=== PATIENT | male | born 1960 | race Caucasian/White ===

== ENCOUNTER 2022-01-11 07:20 | Emergency (ER) | payer BC, SELFPAY ==
[2022-01-11 07:31] VITALS: BP 164/95; PULSE 93; RESP 18; TEMP 36.3; O2SAT 98; BMI 26.5
--- NOTE | 2022-01-11 08:04 | ED_ITS ---
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 patient states that he noticed today that his right toe was more red and swollen, denies any real pain, he had complications with his 1st and 2nd toe in the past which required removal due to infection. patient denies any fevers, chills myalgias arthralgias. No known history of MRSA. Patient was concerned due to his history and presented to the emergency departmen Related Data Home Medications Medication Instructions Recorded Confirmed amlodipine 10 mg tablet mg 01/11/22 aspirin 81 mg tablet,delayed mg 01/11/22 release chlorthalidone 25 mg tablet mg 01/11/22 ezetimibe 10 mg tablet mg 01/11/22 metformin 500 mg tablet mg 01/11/22 omeprazole 20 mg capsule,delayed mg 01/11/22 release rosuvastatin 40 mg tablet mg 01/11/22 Previous Rx's Medication Instructions Recorded glipizide 10 mg tablet, extended 20 mg PO BID #180 tabs 12/28/21 release 24 hr cefuroxime axetil 500 mg tablet 500 mg PO BID #14 tabs 01/11/22 Allergies Allergy/AdvReac Type Severity Reaction Status Date / Time lisinopril Allergy Severe Anaphylaxis Verified 01/11/22 07:30 codeine Allergy Verified 01/11/22 07:30 Review of Systems Status of ROS: Reports: 10 or more systems reviewed and unremarkable except as noted in History and below [facility] Social History service: No Exam Narrative: Exam Narrative: general: no obvious distress sitting comfortably HEENT: tympanic membranes within normal limits bilaterally oropharynx clear and moist pupils equal round reactive to light neck: supple full range of motion lungs: clear to auscultation bilaterally heart: normal sinus rhythm muscle skeletal: right foot: chronic amputation at the PIP, 1st and 2nd toe, 3rd toe shows mild erythema small blister surrounding did skin, no necrosis, nontender, the area is fluctuant with clear fluid, no drainage. Neuro: alert awake and oriented x3 Const: Vital Signs, click to edit/add: Vital Signs - 24 hr 01/11/22 07:31 Temperature 97.3 F L Pulse Rate [Right Pulse Oximeter] 93 Respiratory Rate 18 Blood Pressure [Ri ght Upper Arm] 164/95 H Pulse Oximetry 98 Oxygen Delivery Me thod Room Air Course Course Hospital Course: 8:00 AM: AIDEt performed. workup will inc lude XR right toe three views, Amber performed incision and drainage, please see procedure note. Reevaluation(s) Reevaluation #1: XR right toe three views showed no signs of any osteomyelitis, no acute findings. Incision and drainage was performed without any difficulty, he is feeling better after above care given, plan would be to discharge prescription for cefuroxime axetil 500 mg b.i.d. over the next 7 days based on his history of osteomyelitis, an appointment will be scheduled for him to see Podiatry here in [facility] in 1 weeks time. Return precautions given. Time: 09:27 Vital Signs Vital signs: Initial Vital Signs Temperature 97.3 F L 01/11/22 07:31 Temperature Source Temporal Artery Scan 01/11/22 07:31 Pulse Rate 93 01/11/22 07:31 Respiratory Rate 18 01/11/22 07:31 Blood Pressure 164/95 H 01/11/22 07:31 Blood Pressure Mean 118 01/11/22 07:31 Blood Pressure Position Sitting 01/11/22 07:31 Pulse Oximetry 98 01/11/22 07:31 Oxygen Delivery Method 01/11/22 07:31 Vital Signs Temperature 97.3 F L 01/11/22 07:31 Pulse Rate 93 01/11/22 07:31 Respiratory Rate 18 01/11/22 07:31 Blood Pressure 164/95 H 01/11/22 07:31 Pulse Oximetry 98 01/11/22 07:31 Oxygen Delivery Method 01/11/22 07:31 Temperature 97.3 F L 01/11/22 07:31 Pulse Rate 93 01/11/22 07:31 Respiratory Rate 18 01/11/22 07:31 Blood Pressure 164/95 H 01/11/22 07:31 Pulse Oximetry 98 01/11/22 07:31 Oxygen Delivery Method 01/11/22 07:31 Discharge Plan Discharge Clinical Impression: History of osteomyelitis, Blister of third toe, right Patient Disposition: Home, Self-Care Condition: Improved Instructions: Foot Care for People with Diabetes (ED) Additional Instructions: Augmentin 875 mg twice daily over the next 7 days. To follow-up with podiatry here in [facility] in 1 weeks time, continue with bacitracin and a dressing, daily, to return if worsening symptoms. Activity Level: Activity as Tolerated Prescriptions: New cefuroxime axetil 500 mg tablet 500 mg PO BID Qty: 14 0RF No Action metformin 500 mg tablet Label Comments: TAKE TWO TABLETS BY MOUTH TWICE A DAY WITH MEALS . chlorthalidone 25 mg tablet Label Comments: TAKE ONE-HALF TABLET BY MOUTH EVERY DAY aspirin 81 mg tablet,delayed release (DR/EC) Label Comments: TAKE ONE TABLET BY MOUTH EVERY DAY amlodipine 10 mg tablet Label Comments: TAKE ONE TABLET BY MOUTH EVERY DAY omeprazole 20 mg capsule,delayed release(DR/EC) Label Comments: TAKE ONE CAPSULE BY MOUTH EVERY DAY . ezetimibe 10 mg tablet Label Comments: TAKE ONE TABLET BY MOUTH EVERY DAY rosuvastatin 40 mg tablet Label Comments: TAKE ONE TABLET BY MOUTH AT BEDTIME glipizide 10 mg tablet extended release 24hr 20 mg PO BID Qty: 180 0RF Stand Alone Forms: MyHealth Info Instructions Procedures I/D Type: abscess Site: foot (Right 3rd toe) Site marking: site marked Verification/time out: correct patient Name of person performing procedure: Ajay Dykes Anesthesia I&D: lidocaine 1% Amount of anesthesia used (mls): 1.5 Side (if applicable): right Technique: incised with #11 blade Amount of fluid expressed (mL): 2 Irrigation: No Packing used?: none Estimated blood loss (if any): none Specimens removed (if any): skin debridement. Complications: pain Conclusion: patient tolerated procedure
--- NOTE | 2022-01-11 08:14 | CRLHL7_ITS ---
For Patients: As a result of the Cures Act, medical imaging exams and procedure reports are released immediately into your electronic medical record. You may view this report before your referring provider. If you have questions, please contact your health care provider. Indication: Diabetes. Possible osteomyelitis. Technique: Left toes 3 views. Comparison: 04/13/2021. Findings: Bones: Alignment is normal. No fractures or bone lesions. No convincing evidence for osteomyelitis. Joint spaces: Unremarkable. Soft tissues: Unremarkable. No soft tissue gas. Dictated by Sav Segundo MD @ 01/11/2022 8:52:27 AM (Electronically Signed)
--- NOTE | 2022-01-11 09:17 | PC.NURSE ---
Dr. Dykes in room with pt
== END 2022-01-11 09:30 | disposition home or self-care (01) ==
PROVIDERS: Emergency Provider Student in an Organized Health Care Education/Training Program; PCP Family Medicine
DX: S90.424A Blister (nonthermal), right lesser toe(s), initial encounter (principal); X58.XXXA Exposure to other specified factors, initial encounter; Y93.9 Activity, unspecified; Y92.9 Unspecified place or not applicable; Y99.9 Unspecified external cause status; E11.9 Type 2 diabetes mellitus without complications; Z89.422 Acquired absence of other left toe(s); Z87.39 Personal history of other diseases of the musculoskeletal system and connective tissue
CPT/HCPCS: 10060; 73660; 99282; 99283; 99284